=== PATIENT | male | born 1940 | race Caucasian/White ===

== ENCOUNTER 2025-03-08 18:50 | Emergency (ER) | payer MEDICARE, SELFPAY ==
[2025-03-08 18:55] VITALS: BP 140/74
--- NOTE | 2025-03-08 21:42 | ED.GENMED ---
History of Present Illness
General
Chief Complaint: Extremity Pain (non-traumatic)
Source: patient
Exam Limitations: none
Time Seen by Provider: 03/08/25 20:57
History of Present Illness
History of Present Illness:
84yoM with a history of coronary artery disease and hypertension presenting for evaluation of left calf pain. Patient noted a lump in his left medial ankle about 2 weeks ago. He reports redness and swelling that has slowly began moving proximally
up the calf. He woke up today with some pain/swelling near the medial knee and decided to come to the ED for concern for a blood clot. He denies any trauma. No chest pain, shortness of breath, or fevers. No prior history of VTE.
Past History
Past History
ED Past Medical History: CAD ([place] in 2006), Cancer (Prostate cancer, treated with radiation), HTN, Hypercholesterolemia and [place]
ED Past Surgical History: Cardiac (Stent), Orthopedic (Left wrist fracture with repair, Right hip replacement) and Tonsilectomy
Social History
Tobacco: Non-smoker
Alcohol: Occasional
Drug: None
Personal:
Living: with family
Family History
Family History: Negative Diabetes or CAD
Phy Exam
General Physical Exam
General Presentation: well appearing and no apparent distress
General age: appears stated age
General Skin: warm and dry
General Habitus: normal
General Mental: alert
ENT Exam
ENT Exam: normocephalic
Pulmonary Exam
Pulmonary Exam: no respiratory distress
Neurological Exam
Neurological Exam: alert
Karma Coma Scale
Eye Opening: Spontaneous
Verbal Response: Oriented
Motor Response: Obeys Commands
GCS Total Score: 15
Skin Exam
Skin Exam: warm/dry and other (Erythema and tenderness noted along L medial calf in the area of the greater saphenous vein extending from ankle to knee level. 2+ DP pulse.)
Psychiatric Exam
Psychiatric Exam: normal mood/affect
Course
Orders/Labs/Results
Orders:
Orders
03/08/25 18:59
US Legs, Left [US Periph Venous LOWER Ext LT] Urgent
Comment:
Reason For Exam: leg pain
03/08/25 21:51
Basic Metabolic Panel Urgent
Complete Blood Count/With Diff Urgent
03/08/25 22:53
Rivaroxaban [Xarelto] 15 mg PO ONCE ONE
Abnormal Lab Results
03/08/25
21:51
WBC 11.0 H 10^3/uL
(4.8-10.8)
RBC 4.27 L 10^6/uL
(4.70-6.10)
MCH 31.9 H pg
(27.0-31.0)
Abs Immat Gran (auto) 0.1 H 10^3/uL
(0-0.05)
Absolute Neuts (auto) 7.3 H 10^3/uL
(1.4-6.5)
Absolute Monos (auto) 1.0 H 10^3/uL
(0.1-0.6)
Immature Gran % 1.1 H %
(0-0.5)
Chloride 110 H mmol/L
(98-107)
BUN 26 H mg/dl
(9-20)
Glucose 102 H mg/dl
(70-99)
03/08/25 21:51
03/08/25 21:51
Vital Signs
Initial and Last Documented VS:
Initial Vital Signs
Temp Pulse Resp BP Pulse Ox
98.8 F 82 20 140/74 95
03/08/25 18:55 03/08/25 18:55 03/08/25 18:55 03/08/25 18:55 03/08/25 18:55
Last Documented Vital Signs
Temp Pulse Resp BP Pulse Ox
98.8 F 73 16 132/87 97
03/08/25 18:55 03/08/25 23:22 03/08/25 23:22 03/08/25 23:22 03/08/25 23:22
MDM/Problems Addressed
Differential Diagnosis Includes:
84yoM here with atraumatic L calf swelling/redness x 2 weeks that is worsening. VSS. There is redness noted on exam along the greater saphenous vein extending from ankle to knee level. Differential diagnosis includes: superficial thrombophlebitis,
DVT, doubt cellulitis
Venous duplex obtained which confirms superficial thrombophlebitis of the greater saphenous vein and superficial varicosities. UpToDate reviewed and anticoagulation recommended if >5cm of vein is involved, SVT propagates with symptomatic care
particularly if greater saphenous vein is involved. Labs obtained and renal function normal. He was given a prescription for a Xarelto starter pack. Advised f/u with PCP and vascular surgery. ED return precautions reviewed. Patient discharged in
stable condition.
*Pulse Oximetry
SaO2: 95
Oxygen Mode of Delivery: Room air
Patient hypoxic: no (97%)
*Critical Care Note
Total Time (30-74mins, 75-104mins- exclusive of procedures): Not Applicable
ED Attending Note
-
Portions of this chart may have been created with voice recognition software.� Occasional wrong word or��sound alike� substitutions may have occurred due to the inherent limitations of voice recognition software.
Discharge Plan
Departure
Patient Disposition: Home (Routine Discharge)
Date of Disposition: 03/08/25
Time of Disposition: 22:53
Patient with high blood pressure during this ER visit?: Yes
Discharge Problem:
Superficial thrombophlebitis of great saphenous vein
Instructions: How to take anticoagulants safely, Superficial vein phlebitis and thrombosis
Prescriptions:
New
Xarelto DVT-PE Treat 30d Start 15 mg (42)- 20 mg (9) tablets,dose pack
See Rx Instructions .ROUTE .COMPLEX Qty: 51 0RF
Rx Instructions:
15mg BID with food x 21 days followed by 20mg daily
No Action
lisinopril 20 MG tablet
10 mg PO QPM
simvastatin 80 MG tablet
80 mg PO QPM
aspirin 81 MG tablet,delayed release (DR/EC)
81 mg PO DAILY
omeprazole magnesium [Prilosec OTC] 20 MG tablet,delayed release (DR/EC)
20 mg PO DAILY
metoprolol tartrate 25 MG tablet
25 mg PO BID
ondansetron [Zofran ODT] 8 MG tablet,disintegrating
8 mg PO Q8H Qty: 12 0RF
hydrocodone-acetaminophen 1 EACH tablet
1 ea PO Q4HPRN PRN (Reason: PAIN) Qty: 20 0RF
Referrals:
Ramon Staton MD [Family Provider, Family Practice]
Abdirizak Joseph III, MD [Active, Vascular Surgery]
Activity Restrictions/Additional Instructions:
Take Xarelto (blood thinner) as prescribed.
Please call tomorrow to schedule a follow-up appointment with your family doctor and vascular surgery. Return to the ER with any worsening symptoms including shortness of breath, chest pain, or if you pass out.
Interventions
Interventions:
*Risk Screen - Suicide Last Done: 03/08/25 18:55
*General Assessment Last Done: 03/08/25 18:55
*Neglect/Abuse Screening Last Done: 03/08/25 18:55
*ED- Fall Risk Assessment Last Done: 03/08/25 19:39
*ED COVID-19 Vaccine History Last Done: 03/08/25 19:39
*Nursing Disposition Last Done: 03/08/25 23:22
ED-Skin Assessment Last Done: 03/08/25 19:39
ED-Peripheral Vascular Assessment Last Done: 03/08/25 19:39
ED-Musculoskeletal Assessment Last Done: 03/08/25 19:39
Discharge Date and Time
Discharge Date/Time: 03/08/25 23:25
Print Language: [place]
[2025-03-08 22:01] LABS: % Basophils 0.7 % (0-2); % Eosinophils 1.3 % (0-6); % Immature Granulocytes 1.1 % (0-0.5); % Lymphocytes 22.1 % (20.5-51.1); % Monocytes 8.7 % (1.7-9.3); % Neutrophils 66.1 % (42.2-75.2); Absolute Basophils 0.1 10^3/uL (0-0.2); Absolute Eosinophils 0.1 10^3/uL (0-0.7); Absolute Immature Granulocytes 0.1 10^3/uL (0-0.05); Absolute Lymphocytes 2.4 10^3/uL (1.2-3.4); Absolute Neutrophils 7.3 10^3/uL (1.4-6.5); Hematocrit 39.5 % (39.0-52.0); Hemoglobin 13.6 g/dL (13.0-18.0); Mean Corp Hgb Conc. 34.4 g/dL (33.0-37.0); Mean Corpuscular Hgb 31.9 pg (27.0-31.0); Mean Corpuscular Volume 92.5 fL (80.0-94.0); Mean Platelet Volume 10.3 fL (7.4-10.4); Nucleated Red Blood Cells % 0 % (-); Platelet Count 233 10^3/uL (130-400); Red Blood Cell Count 4.27 10^6/uL (4.70-6.10); Red Cell Dist. Width 12.5 % (11.5-14.5)
[2025-03-08 22:24] LABS: Blood Urea Nitrogen 26 mg/dl (9-20); Calcium 9.3 mg/dl (8.4-10.2); Carbon Dioxide 24 mmol/L (22-30); Chloride 110 mmol/L (98-107); Glucose 102 mg/dl (70-99); Potassium 4.3 mmol/L (3.5-5.1); Sodium 141 mmol/L (135-145); eGFR > 60.00
[2025-03-08] MEDS: XARELTO 15 MG PO (23:07)
[2025-03-08 23:22] VITALS: BP 132/87
== END 2025-03-08 23:25 | disposition home or self-care (01) ==
LOC: EMR 18:50
PROVIDERS: Physician Assistant; EMERGENCY PHYSICIAN Student in an Organized Health Care Education/Training Program; FAMILY PHYSICIAN Family Medicine
DX: I80.02 Phlebitis and thrombophlebitis of superficial vessels of left lower extremity (principal); I10 Essential (primary) hypertension; I25.10 Atherosclerotic heart disease of native coronary artery without angina pectoris
CPT/HCPCS: 99285; 80048; 85025; 93971

== ENCOUNTER 2025-03-13 09:13 | Emergency (ER) | payer MEDICARE, SELFPAY ==
[2025-03-13 09:19] VITALS: BP 133/76
--- NOTE | 2025-03-13 10:48 | ED.GENMED ---
History of Present Illness
General
Chief Complaint: DVT/Possible Blood Clot
Source: patient
Exam Limitations: none
Time Seen by Provider: 03/13/25 10:26
History of Present Illness
History of Present Illness:
See MDM
Past History
Past History
ED Past Medical History: CAD ([place] in 2006), Cancer (Prostate cancer, treated with radiation), HTN, Hypercholesterolemia and [place]
ED Past Surgical History: Cardiac (Stent), Orthopedic (Left wrist fracture with repair, Right hip replacement) and Tonsilectomy
Social History
Tobacco: Non-smoker
Alcohol: Occasional
Drug: None
Personal:
Living: with family
Family History
Family History: Negative Diabetes or CAD
Phy Exam
Physical Exam
Physical Exam:
See MDM
Course
Orders/Labs/Results
Orders:
Orders
03/13/25 10:47
US Periph Venous LOWER Ext LT Urgent
Comment:
Reason For Exam: worsening left calf swelling
03/13/25 12:56
Sulfamethox./Trimethoprim Ds [Bactrim Ds 800 mg/160 mg] 1 tablet PO NOW STA
Vital Signs
Initial and Last Documented VS:
Initial Vital Signs
Temp Pulse Resp BP Pulse Ox
98.7 F 67 18 133/76 96
03/13/25 09:19 03/13/25 09:19 03/13/25 09:19 03/13/25 09:19 03/13/25 09:19
Last Documented Vital Signs
Temp Pulse Resp BP Pulse Ox
98.7 F 59 16 124/71 97
03/13/25 09:19 03/13/25 11:11 03/13/25 11:11 03/13/25 11:11 03/13/25 11:11
MDM/Problems Addressed
Differential Diagnosis Includes:
Note:
CHIEF COMPLAINT(S)
Painful area with a blood clot near the knee.
HISTORY OF PRESENT ILLNESS
The patient is an 84-year-old male with a history of varicose veins and a past heart attack with stent placement. The patient presents with a painful, hard, and tender area near the knee, initially noted on Saturday as a reddened area that has since
enlarged. The patient has been taking Rivaroxaban (Xarelto) for the clot, which was discovered via ultrasound. The medication was started Saturday after the clot was identified Saturday night. The patient has only taken six doses so far.
Despite the anticoagulation, the area has become larger and more painful. The primary concern is whether the clot is worsening despite medication. However, patient states the swelling and tenderness near his ankle has improved.
The patient describes the area as tender and indicates that certain physical activities and clothing make it more uncomfortable, such as tight jeans and long periods in the car. The patient has been advised to use warm compresses but expresses
uncertainty about this remedy. Pain is managed with acetaminophen, which the patient tolerates well.
ADDITIONAL HISTORY OBTAINED FROM SOURCES OTHER THAN THE PATIENT
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
small bump.
EXTERNAL RECORDS REVIEWED
Previous ultrasound report showed a blood clot near the knee.
CHRONIC MEDICAL CONDITIONS SIGNIFICANTLY AFFECTING CARE
- Varicose veins
- History of myocardial infarction with stent placement
REVIEW OF SYSTEMS
- Musculoskeletal: Tenderness and hardness near the knee. Pain aggravated by certain physical activities and clothing pressure.
- Cardiovascular: No mention of chest pain or palpitations. History of myocardial infarction with stent placement.
PHYSICAL EXAM
General: Well appearing and non-toxic
HEENT: protecting airway
Neck: appears supple
CV: No evidence of cyanosis
Resp: No accessory muscle use
Abd: Non-distended
Extremities: Erythema and induration to medial left calf by the popliteal fossa. Distal extremity neurovascular intact
Neuro: alert
Psych: Normal affect
Skin: Intact
Nursing notes reviewed, and vital signs reviewed.
PROBLEM LIST
- Acute: Blood clot near the knee
- Chronic: Varicose veins, History of myocardial infarction with stent placement
PLAN
- Order a repeat ultrasound to evaluate the status of the clot.
- Consider initiating antibiotics if signs of a skin infection are present upon further investigation.
- Switch anticoagulation from Rivaroxaban (Xarelto) to Apixaban (Eliquis) if clot size increases.
- Advise wearing more comfortable clothing to avoid pressure on the area.
- Continue acetaminophen for pain management.
DIFFERENTIAL DIAGNOSIS
The Differential Diagnosis includes, in no particular order and is not limited to:
1. Deep Vein Thrombosis
2. Superficial Thrombophlebitis
3. Cellulitis
4. Hematoma
5. Lipoma
6. Venous insufficiency
7. Muscle strain or sprain
8. Bakers cyst
9. Infection (e.g., abscess)
10. Malignancy (e.g., soft tissue sarcoma)
Disposition:
SUMMARY OF ENCOUNTER
The patient was seen in the emergency department due to concerns of a blood clot near the knee that was initially diagnosed earlier in the week. Despite being on rivaroxaban, the area had become more painful and enlarged. An ultrasound was
conducted, which showed no worsening of the clot. Based on the induration and erythema present, the condition was assessed as cellulitis. Treatment with bactrim was initiated, and the patient was given the first dose in the emergency department.
PLAN
Start treatment for cellulitis with bactrim. Continue rivaroxaban as previously instructed. Apply warm compresses to the affected area regularly to alleviate discomfort.
PATIENT EDUCATION AND COUNSELING
Discussed the use of warm compresses and the importance of continuing current anticoagulation therapy. The patient understands the instructions and the importance of monitoring for any changes in symptoms.
FOLLOW-UP INSTRUCTIONS
The patient is advised to follow up with his primary care physician. Return precautions were provided, and the patient understood them.
MEDICATION RECONCILIATION
Bactrim was administered as the initial treatment for cellulitis. The patient is currently on rivaroxaban for anticoagulation and should continue as prescribed.
MEDICAL DECISION MAKING
- Number and Complexity of Problems Addressed: Chronic conditions affecting care include varicose veins and history of myocardial infarction with stent placement. Differential diagnosis considered includes deep vein thrombosis, cellulitis, and
superficial thrombophlebitis.
- Data:
Category 1: External record reviewed: I reviewed the previous ultrasound report showing a blood clot near the knee.
Category 2: Input from an independent historian: The patients spouse provided additional history about potential causes related to physical activity.
- Risk: Prescription medication for cellulitis was prescribed.
DIAGNOSIS
- Cellulitis (L03.90)
- History of varicose veins (I83.9)
- History of myocardial infarction with stent placement (I25.10)
*Pulse Oximetry
SaO2: 96
Oxygen Mode of Delivery: Room air
Patient hypoxic: no
*Critical Care Note
Total Time (30-74mins, 75-104mins- exclusive of procedures): Not Applicable
ED Attending Note
-
Portions of this chart may have been created with voice recognition software.� Occasional wrong word or��sound alike� substitutions may have occurred due to the inherent limitations of voice recognition software.
Discharge Plan
Departure
Patient Disposition: Home (Routine Discharge)
Date of Disposition: 03/13/25
Time of Disposition: 13:00
Patient with high blood pressure during this ER visit?: No
Discharge Problem:
Cellulitis
Instructions: Cellulitis (Skin Infection), Adult (DC)
Prescriptions:
New
sulfamethoxazole-trimethoprim [Bactrim DS] 800-160 mg tablet
1 tab PO BID 7 Days Qty: 14 0RF
No Action
lisinopril 20 MG tablet
10 mg PO QPM
simvastatin 80 MG tablet
80 mg PO QPM
aspirin 81 MG tablet,delayed release (DR/EC)
81 mg PO DAILY
omeprazole magnesium [Prilosec OTC] 20 MG tablet,delayed release (DR/EC)
20 mg PO DAILY
metoprolol tartrate 25 MG tablet
25 mg PO BID
ondansetron [Zofran ODT] 8 MG tablet,disintegrating
8 mg PO Q8H Qty: 12 0RF
hydrocodone-acetaminophen 1 EACH tablet
1 ea PO Q4HPRN PRN (Reason: PAIN) Qty: 20 0RF
Xarelto DVT-PE Treat 30d Start 15 mg (42)- 20 mg (9) tablets,dose pack
See Rx Instructions .ROUTE .COMPLEX Qty: 51 0RF
Rx Instructions:
15mg BID with food x 21 days followed by 20mg daily
Referrals:
Ramon Staton MD [Family Provider, Family Practice]
Activity Restrictions/Additional Instructions:
Watch for worsening signs of infection: fever over 100.5', increasing pain, red streaks around wound, swelling, or increasing drainage of pus. If any of these happen, return to ED promptly. Make sure that you take all your antibiotics as directed
and finish your prescription even if you feel better before the bottle is empty
Interventions
Interventions:
*Risk Screen - Suicide Last Done: 03/13/25 09:19
*General Assessment Last Done: 03/13/25 09:19
*ED- Fall Risk Assessment Last Done: 03/13/25 10:56
*ED COVID-19 Vaccine History Last Done: 03/13/25 10:56
ED- Cardiac Assessment Last Done: 03/13/25 10:56
ED- Pulmonary Assessment Last Done: 03/13/25 10:56
ED-Peripheral Vascular Assessment Last Done: 03/13/25 10:56
ED-Skin Assessment Last Done: 03/13/25 10:56
Discharge Date and Time
Print Language: LITHU[place]
[2025-03-13 10:56] VITALS: BMI 27.6
[2025-03-13 11:11] VITALS: BP 124/71
[2025-03-13] MEDS: BACTRIM DS 800 MG/160 MG 1 TABLET PO (13:26)
[2025-03-13 13:30] VITALS: BP 130/81
--- NOTE | 2025-03-13 13:35 | EDRN ---
Reviewed discharge instructions with patient. Verbalized understanding. Ambulated with steady gait to the lobby.
== END 2025-03-13 13:30 | disposition home or self-care (01) ==
LOC: EMR 09:13
PROVIDERS: EMERGENCY PHYSICIAN Student in an Organized Health Care Education/Training Program; FAMILY PHYSICIAN Family Medicine
DX: L03.116 Cellulitis of left lower limb (principal); I10 Essential (primary) hypertension; I25.2 Old myocardial infarction; Z95.5 Presence of coronary angioplasty implant and graft
CPT/HCPCS: 99284; 93971